=== PATIENT | female | born 1935 | race Hispanic/Latino ===

== ENCOUNTER 2019-01-05 01:05 | Emergency (ER) | payer OTHER, MEDICARE ==
[~2019-01-05 01:05] MED LIST: ALEN70TA10 PO; AMIO200T5 PO; CIPR-245 PO; GABA-529 PO; LEVO112T7 PO; LISI40TA4 PO; METO-409 PO; OMEP40CA37 PO; SIMV20TA6 PO; SITA100T12 PO; VENL-63 PO
[2019-01-05] MEDS ORDERED: KETOROLAC TROMETHAMINE 30MG/ML ONE (01:50)
[2019-01-05] MEDS ORDERED: ORPHENADRINE CITRATE 30 MG/ML ML ONE (01:50)
== END 2019-01-05 02:52 | disposition home or self-care (01) ==
LOC: EDH 01:05
DX: S13.4XXA Sprain of ligaments of cervical spine, initial encounter (principal); M62.838 Other muscle spasm; Z88.0 Allergy status to penicillin; Z88.2 Allergy status to sulfonamides; X58.XXXA Exposure to other specified factors, initial encounter; Y93.89 Activity, other specified; Y92.89 Other specified places as the place of occurrence of the external cause; Y99.8 Other external cause status
CPT/HCPCS: 93005; 96372 ×2; 99284; J1885; J2360

== ENCOUNTER 2019-05-22 05:58 | Emergency (ER) | payer OTHER, MEDICARE ==
[~2019-05-22 05:58] MED LIST changes: +OMEP40CA13 PO; -OMEP40CA37 PO; +SIMV-43 PO; -SIMV20TA6 PO
[2019-05-22] MEDS ORDERED: HYDROCODONE/ACETAMINOPHEN 5/325 MG TAB ONE (06:51)
[2019-05-22] MEDS ORDERED: LIDOCAINE 5% TOPICAL PATCH TP ONE (06:51)
[2019-05-22] MEDS ORDERED: ONDANSETRON ODT 4 MG TAB ONE (06:51)
[2019-05-22] MEDS ORDERED: ORPHENADRINE CITRATE 30 MG/ML ML ONE (06:52)
== END 2019-05-22 07:37 | disposition home or self-care (01) ==
LOC: EDH 05:58
DX: M54.5 Low back pain (principal); M62.838 Other muscle spasm; E11.9 Type 2 diabetes mellitus without complications; I10 Essential (primary) hypertension; Z95.0 Presence of cardiac pacemaker; I48.91 Unspecified atrial fibrillation; E03.9 Hypothyroidism, unspecified; K21.9 Gastro-esophageal reflux disease without esophagitis; E78.00 Pure hypercholesterolemia, unspecified; Z90.49 Acquired absence of other specified parts of digestive tract; Z88.0 Allergy status to penicillin; Z88.2 Allergy status to sulfonamides
CPT/HCPCS: 96372; 99284; J2360

== ENCOUNTER 2019-11-21 16:42 | Emergency (ER) | payer OTHER, MEDICARE ==
[2019-11-21] MEDS ORDERED: ONDANSETRON HCL 4 MG/2 ML VIAL ONE (17:10)
[2019-11-21] MEDS ORDERED: MORPHINE SULFATE 4 MG/1ML SYG ONE (17:10)
== END 2019-11-21 22:20 | disposition home or self-care (01) ==
LOC: EDH 16:42
DX: S32.509A Unspecified fracture of unspecified pubis, initial encounter for closed fracture (principal); S42.009A Fracture of unspecified part of unspecified clavicle, initial encounter for closed fracture; I48.91 Unspecified atrial fibrillation; E11.9 Type 2 diabetes mellitus without complications; I10 Essential (primary) hypertension; K21.9 Gastro-esophageal reflux disease without esophagitis; E78.00 Pure hypercholesterolemia, unspecified; E03.9 Hypothyroidism, unspecified; F32.9 Major depressive disorder, single episode, unspecified; Z90.49 Acquired absence of other specified parts of digestive tract; Z88.6 Allergy status to analgesic agent; Z88.0 Allergy status to penicillin; W18.39XA Other fall on same level, initial encounter; Y93.31 Activity, mountain climbing, rock climbing and wall climbing; Y92.89 Other specified places as the place of occurrence of the external cause; Y99.8 Other external cause status
CPT/HCPCS: 36415; 73030; 73060; 73502; 80053; 81001; 82550; 84484; 85025; 93005; 96374; 96375; 99285; J2270; J2405